=== PATIENT | male | born 1985 | race Hispanic/Latino ===

== ENCOUNTER 2020-06-03 08:51 | Emergency (ER) | payer OTHER | END 2020-06-03 10:58 | disposition left against medical advice (07) | LOC: EDH 08:51 | DX: M25.561 Pain in right knee (principal); M79.89 Other specified soft tissue disorders; F41.9 Anxiety disorder, unspecified; F12.90 Cannabis use, unspecified, uncomplicated; Z88.8 Allergy status to other drugs, medicaments and biological substances; Z72.0 Tobacco use | CPT/HCPCS: 99281 ==